=== PATIENT | male | born 1960 | race African-American/Black ===

== ENCOUNTER 2022-03-22 11:37 | Emergency (ER) | payer BC ==
[2022-03-22] MEDS ORDERED: Clindamycin 150 MG CAP ONE (12:26)
[2022-03-22] MEDS ORDERED: Ibuprofen 600 MG TAB ONE (12:26)
== END 2022-03-22 13:23 | disposition home or self-care (01) ==
LOC: MADERS 11:37
DX: L03.116 Cellulitis of left lower limb (principal); L02.01 Cutaneous abscess of face; F17.210 Nicotine dependence, cigarettes, uncomplicated
CPT/HCPCS: 87070; 87205; 99283

== ENCOUNTER 2023-04-27 16:32 | Emergency (ER) | payer BC ==
[2023-04-27] MEDS ORDERED: Sodium Chloride 0.9% 1,000 ML ONE ×3 (17:24→20:35)
[2023-04-27] MEDS ORDERED: Ondansetron PF 4 MG/2 ML Vial ONE (17:24)
[2023-04-27 17:43] LABS: ALT (SGPT) 39 U/L (8-55); AST (SGOT) 12 U/L (5-34); Albumin 4.1 g/dL (3.4-4.8); Alkaline Phosphatase 72 U/L (40-110); Anion Gap 24 mmol/L (10-20); BUN (Urea Nitrogen) 95 mg/dL (8.4-25.7); Bilirubin, Total 0.4 mg/dL (0.2-1.2); Calc. Creatinine Clearance 0 mL/min (70-130); Calcium 8.6 mg/dL (7.8-10.44); Carbon Dioxide 19 mmol/L (23-31); Chloride 91 mmol/L (98-107); Estimated GFR 6; Globulin 3.3 g/dL (2.4-3.5); Glucose 130 mg/dL (80-115); Lipase 24 U/L (8-78); Potassium 3.4 mmol/L (3.5-5.1); Protein, Total 7.4 g/dL (5.8-8.1); Sodium 131 mmol/L (136-145)
[2023-04-27 18:05] LABS: Red Blood Cell (RBC) Count 8.48 mill/uL (4.70-6.10); White Blood Cell (WBC) Count 9.4 10x3/uL (4.8-10.8)
[2023-04-27 18:06] LABS: %Lymphocytes 8.3 % (21.0-51.0); %Monocytes 12.3 % (0.0-10.0); %Neutrophils 77.8 % (42.0-75.0); Hematocrit 59.8 % (42.0-52.0); Mean Corpuscular HGB CONC 31.8 g/dL (32.0-36.0); Mean Corpuscular Hemoglobin 22.4 pg (27.0-31.0); Mean Corpuscular Volume 70.5 fl (78.0-98.0); Mean Platelet Volume 9.1 fL (7.4-10.4); Platelet Count 355 10x3/uL (130-400); RBC Distribution Width 13.4 % (11.5-14.5)
[2023-04-27 18:07] LABS: #Basophils 0.1 thou/uL (0.0-0.2); #Lymphocytes 0.4 thou/uL (1.20-3.40); #Monocytes 0.7 thou/uL (0.11-0.59); #Neutrophils 4.2 thou/uL (1.40-6.50); %Basophils 1.3 % (0.0-1.0); %Eosinophils 0.3 % (0.0-10.0)
[2023-04-27 18:36] LABS: Bilirubin Negative (Negative); Blood, Urine Trace (Negative); Clarity Slightly Cloudy (Clear); Glucose, Urine (Dipstick) 100 mg/dL (Negative); Ketone, Urine Negative (Negative); Leukocyte Negative (Negative); Nitrite Negative (Negative); Protein, Urine (Dipstick) 100 mg/dL (Neg-Trace); Specific Gravity, Urine 1.025 (1.005-1.030); Urobilinogen 0.2 mg/dL (Less than 2); pH, Urine 5.5 (5.0-9.0)
[2023-04-27 18:42] LABS: CAUTI Indications for Culture Dysuria,urgency,freq
[2023-04-27 18:44] LABS: RBC/HPF 0-3 HPF (0-3); WBC/HPF 21-50 HPF (0-3)
[2023-04-27 18:45] LABS: Bacteria/HPF 4+ HPF (None Seen)
[2023-04-27 18:49] LABS: Urine Culture Reflex Yes Yes
[2023-04-27] MEDS ORDERED: Piperacillin/Tazobactam 3.375 GM VIAL ONE (20:35)
[2023-04-27] MEDS ORDERED: Sodium Chloride 0.9% 100 ML ONE (20:35)
[2023-04-27] MEDS ORDERED: Dicyclomine 10 MG CAP ONE (20:42)
== END 2023-04-27 22:22 | disposition short-term general hospital (02) ==
LOC: MADERS 16:32
DX: K35.80 Unspecified acute appendicitis (principal); N17.9 Acute kidney failure, unspecified; R11.2 Nausea with vomiting, unspecified; I10 Essential (primary) hypertension; F17.210 Nicotine dependence, cigarettes, uncomplicated; Z79.899 Other long term (current) drug therapy
CPT/HCPCS: 74176; 80053; 81001; 83690; 85025; 87086; 96361; 96365; 96375; J2405; J2543; J3490; J7050